=== PATIENT | male | born 1965 | race Caucasian/White ===

== ENCOUNTER 2020-11-17 19:19 | Emergency (ER) | payer MEDICAID ==
[~2020-11-17] VITALS: Ht 175.3 cm; Wt 81.6 kg
[2020-11-17 19:20] VITALS: BP_SYST 146
--- NOTE | 2020-11-17 19:20 | NUR ---
Pt to hallway to be assessed.
--- NOTE | 2020-11-17 19:21 | NUR ---
Came in ER ambulatory from home this 55 year old male, AAOX4, breathing spontaneously at room air, not in distress noted. With chief complaints of burning/ pain in urination for several days, history of chronic UTI, allergy to penicillin, vital signs stable
--- NOTE | 2020-11-17 19:38 | NUR ---
ER at bedside examining patient.
[2020-11-17 20:05] LABS: BILIRUBIN,URINE NEGATIVE (NEGATIVE); COLOR,URINE YELLOW (YELLOW); GLUCOSE,URINE NEGATIVE (NEGATIVE); KETONES,URINE NEGATIVE (NEGATIVE); NITRITE, URINE NEGATIVE (NEGATIVE); PROTEIN URINE 1+ (NEGATIVE)
--- NOTE | 2020-11-17 20:10 | NUR ---
# 20 gauge angiocath placed to right ac. Use of asceptic technique. Opsite placed over site. Blood return noted. Blood for lab drawn from site. Flushed with 10 cc of normal saline. No evidence of infiltration noted. Patient tolerated well.
[2020-11-17 20:17] LABS: BLOOD, URINE TRACE (NEGATIVE); CLARITY/URINE HAZY (CLEAR); LEUKOCYTE ESTERASE ,URINE 2+ (NEGATIVE)
[2020-11-17 20:18] LABS: RBC,URINE NONE SEEN /HPF (0-3)
[2020-11-17 20:19] LABS: BACTERIA,URINE FEW /HPF (None Seen); MUCUS,URINE None Seen /LPF (None Seen); WBC,URINE 50-80 /HPF (0-3)
[2020-11-17 20:57] LABS: BASOPHILS % (AUTO) 0.3 % (0.0-2.0); EOSINOPHILS # (AUTO) 0.1 K/uL (0.0-0.4); EOSINOPHILS % (AUTO) 1.1 % (0.0-4.0); HEMATOCRIT 42.7 % (36-54); HEMOGLOBIN 14.8 g/dL (14.0-18.0); LYMPHOCYTES # (AUTO) 3.6 K/uL (1.0-5.5); LYMPHOCYTES % (AUTO) 27.9 % (20.5-51.5); MEAN CORPUSCULAR HEMOGLOBIN 33 pg (27-31); MEAN CORPUSCULAR HGB CONC 35 % (32-36); MEAN CORPUSCULAR VOLUME 94 fL (79.0-98.0); MONOCYTES # (AUTO) 1.1 K/uL (0.0-1.0); MONOCYTES % (AUTO) 8.7 % (1.7-9.3); NEUTROPHILS # (AUTO) 7.9 K/uL (1.8-7.7); PLATELET COUNT (AUTO) 222 K/uL (130-430); RED BLOOD CELL COUNT(AUTO) 4.54 MIL/uL (4.2-6.2); RED CELL DISTRIBUTION WIDTH 13.1 % (9.0-15.0); WHITE BLOOD COUNT (AUTO) 12.8 K/uL (4.8-10.8)
[2020-11-17 21:03] LABS: CALCIUM 8.9 mg/dL (8.4-11.0); CREATININE 0.89 mg/dL (0.55-1.30); INR 0.9 (0.80-1.20); POTASSIUM 4.2 mmol/L (3.5-5.1)
[2020-11-17 21:14] LABS: ALBUMIN 3.8 g/dL (3.4-4.8); TOTAL BILIRUBIN 0.5 mg/dL (0.0-1.0)
[2020-11-17 21:26] LABS: C-REACTIVE PROTEIN QUANT 4.2 mg/dL (0-0.5)
[2020-11-17 22:01] VITALS: BP_SYST 132
--- NOTE | 2020-11-17 22:01 | NUR ---
Patient given written and verbal discharge instructions and verbalizes understanding. ER MD discussed with patient the results and treatment provided. Patient in stable condition. ID arm band removed. IV catheter removed intact and dressing applied, no active bleeding. Rx of ciprofloxacin and motrin given. Patient educated on pain management and to follow up with PMD. Pain Scale 0/10. Opportunity for questions provided and answered. Medication side effect fact sheet provided.
--- NOTE | 2020-11-20 22:59 | NUR ---
As ordered by Dr Flores , Called patient x 1 to notify patient needs to return for antibiotics IV after urine culture result of positive ESBL, pt is resistent to Cipro , no answer at this time Dr Flores notified, report given to Jaida HOOD
--- NOTE | 2020-11-21 07:55 | NUR ---
RX called in to pharmacy. Spoke to pt verbalized understanding to D/C current RX and start new ABX.
== END 2020-11-17 22:01 | disposition home or self-care (01) ==
LOC: SED 19:19
DX: N39.0 Urinary tract infection, site not specified (principal); N41.9 Inflammatory disease of prostate, unspecified; Z88.0 Allergy status to penicillin
CPT/HCPCS: 36415; 76376; 80053; 81000; 82150; 83605; 83690; 85025; 85610-TC; 85730-TC; 86140; 87086; 99284